=== PATIENT | female | born 1985 | race Caucasian/White ===

== ENCOUNTER 2016-02-27 15:17 | Outpatient (CLI) | payer OTHER ==
[~2016-02-27] VITALS: Ht 177.8 cm; Wt 136.4 kg
[~2016-02-27 15:17] MED LIST: CEPHALEXIN500 M1 PO; CHLO PO; EFFEXOR 75M75 MG/TAB PO; IMPLANON68 MG ID; LORTAB 5/500 501 TAB PO; METHYLDOPA PO; MOTRIN 600600 MG/TAB PO; NIFEDIPINE PO; NO HOME MEDICATIONS; PERCOCET 325 MG1 TA2 PO; PREDNISONE10 MG PO; PRENATAL VITAMI1 TAB PO; PRENATAL1 TA1 PO; PRISTIQ50 M1 PO; PROCARDIA XL 3030 MG PO; PROCARDIA XL60 MG PO; REQUIP0.25 MG PO; ZOVIRAX400 MG PO
[2016-02-27 15:37] VITALS: BP 157/74; PULSE 80; TEMP 98.2
[2016-02-27] MEDS ORDERED: ALDOMET500 MG PO (15:47)
[2016-02-27 16:15] VITALS: BP 139/65; PULSE 77; TEMP 98.2
== END 2016-02-27 16:37 | disposition home or self-care (01) ==
LOC: LDRO 15:17
DX: O36.72X0 Maternal care for viable fetus in abdominal pregnancy, second trimester, not applicable or unspecified (principal); Z3A.26 26 weeks gestation of pregnancy; Z87.891 Personal history of nicotine dependence

== ENCOUNTER 2016-04-06 11:47 | Outpatient (CLI) | payer OTHER ==
[~2016-04-06] VITALS: Ht 182.9 cm; Wt 139.1 kg
[~2016-04-06 11:47] MED LIST changes: +ALDOMET500 MG PO
[2016-04-06 12:00] VITALS: BP 170/79; PULSE 75; TEMP 97.9
[2016-04-06] MEDS ORDERED: PRENATAL MVI (12:07)
[2016-04-06 12:30] VITALS: BP 154/74; PULSE 80
[2016-04-06 12:41] LABS: PH 8 (5-8); SQUAMOUS EPITHELIAL 0-2 /hpf; URINE APPEARANCE Clear; URINE BACTERIA Rare /hpf; URINE BILIRUBIN Negative (NEGATIVE); URINE BLOOD Negative (NEGATIVE); URINE COLOR Straw; URINE GLUCOSE Negative (NEGATIVE); URINE KETONE Negative (NEGATIVE); URINE UROBILINOGEN Negative (NEGATIVE)
[2016-04-06 12:45] VITALS: BP 152/78; PULSE 77
[2016-04-06 12:51] LABS: BASO % 0.2 % (0.0-2.0); EOS % 0.2 % (0-4.0); GRAN # 5.9 (1.4-6.5); GRAN % 70.3 % (42.2-75.2); LYMPH % 24.1 % (20.0-51.0); MEAN CELL VOLUME 83 fl (80.0-100.0); MEAN CORPUSCULAR HGB CONC 32 g/dl (33.0-37.0); MEAN PLATELET VOLUME 11.4 fl (7.4-10.4); MONO # 0.4 (0.1-0.6); MONO % 4.8 % (1.7-9.3); PLATELET COUNT 230 K/mm3 (130-400); RED BLOOD COUNT 3.68 M/mm3 (4.10-5.30); REDCELL DISTRIBUTION WIDTH-CV 14.6 % (11.5-14.5); WHITE BLOOD COUNT 8.4 K/mm3 (4.8-10.8)
[2016-04-06 12:58] LABS: ADJUSTED CALCIUM 9.9 mg/dL (8.4-10.2); ALBUMIN 2.9 gm/dL (3.5-5.0); BILIRUBIN,TOTAL 0.5 mg/dL (0.0-1.0); CREATININE, serum 0.52 mg/dL (0.52-1.25); POTASSIUM 3.5 mmol/L (3.4-5.0); TOTAL PROTEIN 6.2 gm/dL (6.4-8.2)
[2016-04-06 13:00] VITALS: BP 135/69; BP 155/68; PULSE 74; PULSE 80
[2016-04-06 13:00] LABS: HEMATOCRIT 30.5 % (37.0-47.0); HEMOGLOBIN 9.6 g/dl (12.5-16.0); MEAN CORPUSCULAR HEMOGLOBIN 26 pg (27.0-31.0)
[2016-04-06 13:20] VITALS: BP 132/68; PULSE 74
== END 2016-04-06 13:39 | disposition home or self-care (01) ==
LOC: LDRO 11:47
PROVIDERS: Obstetrics & Gynecology
DX: O26.893 Other specified pregnancy related conditions, third trimester (principal); I10 Essential (primary) hypertension; Z3A.32 32 weeks gestation of pregnancy; Z87.891 Personal history of nicotine dependence

== ENCOUNTER 2016-04-11 11:05 | Outpatient (CLI) | payer OTHER ==
[~2016-04-11] VITALS: Ht 182.9 cm; Wt 139.8 kg
[~2016-04-11 11:05] MED LIST changes: +PRENATAL MVI
[2016-04-11 11:17] VITALS: TEMP 98.2
[2016-04-11 11:22] VITALS: BP 144/83; PULSE 85; TEMP 98.2
[2016-04-11] MEDS ORDERED: FLINTSTONES COM1 CT1 PO (11:28)
[2016-04-11 11:50] VITALS: BP 140/74; PULSE 84
[2016-04-11 12:20] VITALS: BP 143/71; PULSE 77
[2016-04-11 13:00] VITALS: BP 145/71; PULSE 81
[2016-04-11 13:30] VITALS: BP 137/68; PULSE 86
== END 2016-04-11 13:55 | disposition home or self-care (01) ==
LOC: LDRO 11:05
DX: O10.913 Unspecified pre-existing hypertension complicating pregnancy, third trimester (principal); Z3A.33 33 weeks gestation of pregnancy; Z87.891 Personal history of nicotine dependence
CPT/HCPCS: J0702

== ENCOUNTER 2016-04-18 08:57 | Outpatient (RCR) | payer OTHER ==
[~2016-04-18] VITALS: Ht 182.9 cm; Wt 136.1 kg
[~2016-04-18 08:57] MED LIST changes: +FLINTSTONES COM1 CT1 PO
== END 2016-07-17 | disposition still patient (30) ==
LOC: LDRO
DX: O26.893 Other specified pregnancy related conditions, third trimester (principal); R03.0 Elevated blood-pressure reading, without diagnosis of hypertension; Z3A.34 34 weeks gestation of pregnancy

== ENCOUNTER 2016-04-19 12:33 | Observation (INO) | payer OTHER ==
[2016-04-19] VITALS (11 sets, daily range): BP systolic 141–206; BP diastolic 65–89; PULSE 72–91; TEMP 97.9
[~2016-04-19] VITALS: Ht 182.9 cm; Wt 139.1 kg
[2016-04-19 12:56] LABS: BASO % 0.3 % (0.0-2.0); EOS # 0.1 (0.0-0.7); EOS % 0.5 % (0-4.0); HEMATOCRIT 28.7 % (37.0-47.0); HEMOGLOBIN 9.2 g/dl (12.5-16.0); LYMPH # 2.4 (1.2-3.4); LYMPH % 24.2 % (20.0-51.0); MEAN CELL VOLUME 80 fl (80.0-100.0); MEAN CORPUSCULAR HEMOGLOBIN 26 pg (27.0-31.0); MEAN CORPUSCULAR HGB CONC 32 g/dl (33.0-37.0); MEAN PLATELET VOLUME 11.4 fl (7.4-10.4); MONO # 0.6 (0.1-0.6); MONO % 5.6 % (1.7-9.3); PLATELET COUNT 247 K/mm3 (130-400); RED BLOOD COUNT 3.57 M/mm3 (4.10-5.30); REDCELL DISTRIBUTION WIDTH-CV 14.8 % (11.5-14.5); WHITE BLOOD COUNT 10.1 K/mm3 (4.8-10.8)
[2016-04-19 13:05] LABS: ALBUMIN 2.8 gm/dL (3.5-5.0); BILIRUBIN,TOTAL 0.5 mg/dL (0.0-1.0); CREATININE, serum 0.46 mg/dL (0.52-1.25); POTASSIUM 3.2 mmol/L (3.4-5.0); TOTAL PROTEIN 5.9 gm/dL (6.4-8.2)
== END 2016-04-19 18:00 | disposition short-term general hospital (02) ==
LOC: LDRO 12:33 → LDR 17:11
PROVIDERS: Obstetrics & Gynecology
DX: O14.13 Severe pre-eclampsia, third trimester (principal); O16.3 Unspecified maternal hypertension, third trimester; O99.019 Anemia complicating pregnancy, unspecified trimester; R51 Headache; Z3A.34 34 weeks gestation of pregnancy
CPT/HCPCS: J3475; J7120

== ENCOUNTER → 2018-05-07 | Outpatient (CLI) | payer OTHER | LOC: ZCOL.LAB 14:44 | DX: Z86.14 Personal history of Methicillin resistant Staphylococcus aureus infection (principal) ==

== ENCOUNTER 2018-12-29 23:22 | Day surgery (SDC) | payer OTHER ==
[~2018-12-29] VITALS: Ht 177.8 cm; Wt 128.0 kg
[2018-12-30] VITALS (19 sets, daily range): BP systolic 116–152; BP diastolic 49–75; PULSE 50–81; TEMP 97.5–98.4
--- NOTE | 2018-12-30 00:15 | NUR ---
Arrives per stretcher from [facility], via EMS. Is alert and oriented x4. Has SL to left wrist without redness or swelling. Reports pain is 3/10 at this time.
--- NOTE | 2018-12-30 00:30 | NUR ---
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 Reports pain is 3/10 at this time.
[2018-12-30] MEDS ORDERED: PRINIVIL20 MG PO (00:46)
[2018-12-30] MEDS ORDERED: ALDACTONE 25MG25 M1 PO (00:47)
[2018-12-30] MEDS ORDERED: CELEXA 20MG20 MG/TAB PO (00:49)
[2018-12-30] MEDS ORDERED: MIRAPEX0.5 MG PO (00:50)
--- NOTE | 2018-12-30 03:00 | NUR ---
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 Has not voided this shift.
--- NOTE | 2018-12-30 06:00 | NUR ---
Patient resting well. Has used 10mg of Morphine since admission.
--- NOTE | 2018-12-30 09:23 | NUR ---
ARPIT and occupational health and safety adviser met with the patient to discuss discharge plan. The patient lives in [place] with her , Cesar ([phone]), and three children. She reports independence with ADLs and does not have any DME. The patient's primary care provider is IRMA Reynoso and she receives her medications at [place] [facility]. She reports occasional difficulties affording her meds. The patient does not have advanced directives, but she was interested in obtaining a form for DPOA-HC. [facility] provided. The patient plans to return home with her family upon discharge. No additional needs at this time.
--- NOTE | 2018-12-30 16:47 | NUR ---
Patient to OR with surgical staff at this time.
--- NOTE | 2018-12-30 18:39 | NUR ---
Patient returns from cysto, assessment unchanged. No c/o at this time.
== END 2018-12-30 21:10 | disposition home or self-care (01) ==
LOC: SURG 23:22 → SDCO 23:22 → MEDICAL 23:22 → SURG 23:22 → SDCO 12-30 21:10
DX: N13.2 Hydronephrosis with renal and ureteral calculous obstruction (principal); F17.210 Nicotine dependence, cigarettes, uncomplicated; Z90.49 Acquired absence of other specified parts of digestive tract; Z88.5 Allergy status to narcotic agent; Z88.3 Allergy status to other anti-infective agents; I10 Essential (primary) hypertension; Z79.899 Other long term (current) drug therapy; G25.81 Restless legs syndrome; R51 Headache
CPT/HCPCS: OP; C1769; C2617; G0378; J0690; J1100; J1885; J2270; J2405; J2704; J3010; J7030; Q9967